=== PATIENT | male | born 1990 | race Caucasian/White ===

== ENCOUNTER 2019-10-11 08:00 | Emergency (ER) | payer OTHER ==
[~2019-10-11] VITALS: Ht 180.3 cm; Wt 126.6 kg
[2019-10-11 08:00] VITALS: BP 143/75
[2019-10-11] MEDS ORDERED: CEPH500T PO (08:19)
--- NOTE | 2019-10-11 08:19 | ED Integumentary General ---
General Chief Complaint: Skin/Wound Problems Stated Complaint: ABD PAIN Source: patient Exam Limitations: no limitations History of Present Illness Date Seen by Provider: Oct 11, 2019 Time Seen by Provider: 08:18 Initial Comments some pain and redness developing over the past 2 days around his belly-button. Called [facility], advised to be seen. No loss of appetite, no fever, no n/v/d. NO previous occurrence. Allergies and Home Medications Allergies Coded Allergies: No Known Drug Allergies (Unverified , 10/11/19) Home Medications Cephalexin 500 Mg Tablet, 500 MG PO QID Prescribed by: MAXIMINO CHERRY on 10/11/19 0819 Patient Home Medication List Home Medication List Reviewed: Yes Review of Systems Review of Systems Constitutional: no symptoms reported; No chills, No fever, No malaise, No weakness Respiratory: no symptoms reported Cardiovascular: no symptoms reported Gastrointestinal: abdominal pain; No diarrhea, No loss of appetite, No nausea, No vomiting Musculoskeletal: No back pain, No joint pain, No muscle pain Skin: see HPI, change in color; No pruritus, No rash Past [id number] Hx Past Med/Social Hx: Reviewed Nursing Past Med/Soc Hx Physical Exam Vital Signs Capillary Refill : General Appearance: WD/WN, no apparent distress Cardiovascular: regular rate, rhythm, no edema Respiratory: chest non-tender, lungs clear Gastrointestinal: normal bowel sounds, soft; No distended, No guarding, No rebound, No hernia, No mass Skin: other (erythema surrounding umbilicus w induration of umbilical skin and tenderness. about 3cm radius.) Departure Impression Primary Impression: Cellulitis Qualified Codes: L03.90 - Cellulitis, unspecified Disposition: HOME, SELF-CARE Condition: Stable Departure-Patient Inst. Patient Instructions: Cellulitis (Skin Infection), Adult (DC) Scripts Cephalexin (Cephalexin) 500 Mg Tablet 500 MG PO QID, #28 TAB 0 Refills Prov: MAXIMINO CHERRY DO 10/11/19 MAXIMINO CHERRY DO Oct 11, 2019 08:19
== END 2019-10-11 08:27 | disposition home or self-care (01) ==
LOC: ER FS 08:02
DX: L03.311 Cellulitis of abdominal wall (principal)
CPT/HCPCS: 99283